=== PATIENT | male | born 1990 | race Caucasian/White ===

== ENCOUNTER 2023-02-17 16:19 | Inpatient (IN) | payer OTHER ==
[2023-02-17 17:16] VITALS: BMI 27.3
[2023-02-17] MEDS ORDERED: BENZONATATE 200 MG CAPSULE PO PRN (19:45)
[2023-02-17] MEDS ORDERED: MAG HYDROX/AL HYDROX/SIMETH 30 ML UNIT-DOSE CUP PO PRN (19:45)
[2023-02-17] MEDS ORDERED: LOPERAMIDE HCL 2 MG CAPSULE PO PRN (19:45)
[2023-02-17] MEDS ORDERED: hydrOXYzine PAMOATE 25 MG CAPSULE (FP) PO PRN (19:45)
[2023-02-17] MEDS ORDERED: MAGNESIUM HYDROX 2400MG/30ML ORAL SUSPENSION 30 ML CUP PO PRN (19:45)
[2023-02-17] MEDS ORDERED: NALOXONE HCL (KLOXXADO) 8 MG SPRAY NS PRN (19:45)
[2023-02-17] MEDS ORDERED: BENZOCAINE/MENTHOL (CHLORASEPTIC ) LOZENGE MM PRN (19:45)
[2023-02-17] MEDS ORDERED: IBUPROFEN 600 MG TABLET (FP) PO PRN (19:45)
[2023-02-17] MEDS ORDERED: ONDANSETRON *ODT* 4 MG TABLET SL PRN (19:45)
[2023-02-17] MEDS ORDERED: guaiFENesin 600 MG TABLET.ER (FP) PO PRN (19:45)
[2023-02-17] MEDS ORDERED: IBUPROFEN 400 MG TABLET (FP) PO PRN (19:45)
[2023-02-17] MEDS ORDERED: DICYCLOMINE HCL 10 MG CAPSULE PO PRN (19:45)
[2023-02-17] MEDS ORDERED: BISMUTH SUBSALICYLATE 524 MG/30 ML PO PRN (19:45)
[2023-02-17] MEDS ORDERED: NALOXONE HCL 0.4 MG/ML VIAL IM PRN (19:45)
[2023-02-17] MEDS ORDERED: POLYETHYLENE GLYCOL (HEALTHYLAX) 3350 17 GM PACKET PO PRN (19:45)
[2023-02-17] MEDS ORDERED: ALBUTEROL SO4 0.083% IH SOL 2.5 MG/3 ML VIAL.NEB. NEB ONE (21:30)
[2023-02-18] MEDS: THIAMINE HCL 100 MG TABLET (FP) PO SCH ×2 (01:02→22:15)
[2023-02-18] MEDS: MELATONIN 5 MG TABLETS PO SCH ×2 (02:10→22:14)
[2023-02-18] MEDS ORDERED: diazePAM 5 MG TABLET PO PRN (09:32)
[2023-02-18] MEDS ORDERED: predniSONE 20 MG TABLET (UD) PO SCH (10:00)
[2023-02-18] MEDS: PRENATAL VITAMINS W/ FOLIC ACID TABLET (FP) PO SCH (10:25)
[2023-02-18] MEDS: diazePAM 5 MG TABLET PO SCH ×3 (10:26→22:15)
[2023-02-18] MEDS: NICOTINE 21 MG/24 HOURS TOPICAL PATCH TD SCH (10:26)
[2023-02-18] MEDS: NICOTINE POLACRILEX 2 MG GUM BC PRN ×3 (10:26→22:16)
[2023-02-18 10:47] LABS: CHLORIDE 108 mmol/L (98-107); POTASSIUM 4.1 mmol/L (3.5-5.1); SODIUM 140 mmol/L (136-145)
[2023-02-18 10:48] LABS: HEMATOCRIT 43.1 % (35.4-49); HEMOGLOBIN 14.8 GM/dL (11.7-16.9); MCH 30.2 pg (25.7-33.7); MCHC 34.3 g/dl (32.0-35.9); MEAN CELL VOLUME 88.1 fl (80-96); MEAN PLT VOLUME 8.1 fl (7.5-11.1); PLATELET COUNT 256 10^3/uL (134-434); RDW 14.1 % (11.9-15.9); WHITE BLOOD COUNT 7.2 K/mm3 (4.0-10.0)
[2023-02-18 10:54] LABS: ALBUMIN 3.4 g/dl (3.4-5.0); ANION GAP 6 mmol/L (4-13); BLOOD UREA NITROGEN 20.5 mg/dL (7-18); CO2 27 mmol/L (21-32); SGPT/ALT 75 U/L (13-61)
[2023-02-18 10:55] LABS: CREATININE 0.9 mg/dL (0.55-1.3)
[2023-02-18 10:56] LABS: BILIRUBIN,TOTAL 0.2 mg/dL (0.2-1); CALCIUM 8.7 mg/dL (8.5-10.1); TOT PROT 6.4 g/dl (6.4-8.2)
[2023-02-18 10:57] LABS: ALK PHOS 94 U/L (45-117); GLUCOSE,RANDOM 93 mg/dL (74-106); SGOT/AST 32 U/L (15-37)
[2023-02-18] MEDS: METHOCARBAMOL 500 MG TABLET PO PRN (22:15)
[2023-02-19] MEDS: diazePAM 5 MG TABLET PO SCH ×4 (05:38→22:19)
[2023-02-19] MEDS: PALIPERIDONE 1.5 MG ER TABLET PO SCH (10:15)
[2023-02-19] MEDS: PRENATAL VITAMINS W/ FOLIC ACID TABLET (FP) PO SCH (10:15)
[2023-02-19] MEDS: ACETAMINOPHEN 325 MG TABLET (FP) PO PRN (10:18)
[2023-02-19] MEDS: NICOTINE POLACRILEX 2 MG GUM BC PRN ×4 (10:19→22:21)
[2023-02-19] MEDS: NICOTINE 21 MG/24 HOURS TOPICAL PATCH TD SCH (10:19)
[2023-02-19] MEDS: MELATONIN 5 MG TABLETS PO SCH (22:19)
[2023-02-19] MEDS: THIAMINE HCL 100 MG TABLET (FP) PO SCH (22:19)
[2023-02-19] MEDS: METHOCARBAMOL 500 MG TABLET PO PRN (22:19)
[2023-02-20] MEDS: ACETAMINOPHEN 325 MG TABLET (FP) PO PRN (01:33)
[2023-02-20] MEDS: diazePAM 5 MG TABLET PO SCH ×3 (06:11→22:11)
[2023-02-20] MEDS: NICOTINE POLACRILEX 2 MG GUM BC PRN ×4 (08:15→22:10)
[2023-02-20] MEDS: PRENATAL VITAMINS W/ FOLIC ACID TABLET (FP) PO SCH (10:22)
[2023-02-20] MEDS: PALIPERIDONE 1.5 MG ER TABLET PO SCH (10:24)
[2023-02-20] MEDS: NICOTINE 21 MG/24 HOURS TOPICAL PATCH TD SCH (10:30)
[2023-02-20 20:30] VITALS: BP 115/75; PULSE 75; RESP 16
[2023-02-20] MEDS: MELATONIN 5 MG TABLETS PO SCH (22:10)
[2023-02-20] MEDS: THIAMINE HCL 100 MG TABLET (FP) PO SCH (22:11)
[2023-02-21] MEDS ORDERED: diazePAM 5 MG TABLET PO SCH (06:00)
[2023-02-21] MEDS: NICOTINE POLACRILEX 2 MG GUM BC PRN (06:26)
[2023-02-21 07:02] VITALS: TEMP 97.9
[2023-02-22] MEDS ORDERED: diazePAM 5 MG TABLET PO ONE (06:00)
== END 2023-02-21 08:52 | disposition other institution (70) | DRG 774 ==
LOC: YASAS 16:19 → Y3N 02-18 00:02
PROVIDERS: ADMIT Allergy & Immunology; ATTEND Surgery
PROC: HZ2ZZZZ Detoxification Services for Substance Abuse Treatment (ICD-10-PCS; principal; 2023-02-18)
DX: F10.230 Alcohol dependence with withdrawal, uncomplicated (principal); F14.20 Cocaine dependence, uncomplicated; F17.210 Nicotine dependence, cigarettes, uncomplicated; F20.9 Schizophrenia, unspecified; Z86.59 Personal history of other mental and behavioral disorders
CPT/HCPCS: 36415; 80053; 80307; 85027; 86780; 87635; 87811